=== PATIENT | female | born 1990 | race Caucasian/White ===

== ENCOUNTER 2024-04-30 09:59 | Emergency (ER) | payer OTHER ==
[~2024-04-30] VITALS: Ht 165.1 cm; Wt 88.5 kg
[2024-04-30 10:08] VITALS: PULSE 83; RESP 17; TEMP 98.5
[2024-04-30] MEDS: SODIUM CHLORIDE 0.9% 1000ML 1,000 ML IV STA (10:26)
[2024-04-30 10:37] LABS: BASOPHILS # (AUTO) 0.1 (0.0-0.1); BASOPHILS % 0.7 % (0.0-1.0); EOSINOPHILS # (AUTO) 0.2 (0.0-0.4); EOSINOPHILS % 2.7 % (0.0-6.0); HEMATOCRIT 41.2 % (34.2-44.1); LYMPHOCYTES # (AUTO) 2.3 (1.0-3.2); LYMPHOCYTES % 33.2 % (18.0-39.1); MEAN CORPUSCULAR HEMOGLOBIN 27.7 pg (28-32); MEAN CORPUSCULAR HGB CONC 31.6 g/dL (31-35); MEAN CORPUSCULAR VOLUME 87.7 fL (81-99); MONOCYTES # (AUTO) 0.4 (0.2-0.8); MONOCYTES % 6.2 % (4.4-11.3); NEUTROPHILS # (AUTO) 3.9 (2.1-6.9); NEUTROPHILS % 56.6 % (38.7-80.0); PLATELET COUNT 246 x10e3/uL (140-360); RED CELL DISTRIBUTION WIDTH 13.8 % (11.7-14.4); WHITE BLOOD COUNT 6.93 x10e3/uL (4.8-10.8)
[2024-04-30 11:04] LABS: INR 1.06; PROTHROMBIN TIME 14.3 seconds (11.9-14.5)
[2024-04-30 11:05] LABS: PARTIAL THROMBOPLASTIN TIME 30.4 seconds (23.8-35.5)
[2024-04-30 11:12] LABS: ANION GAP 12.7 mmol/L (8-16); CALCIUM 9.5 mg/dL (8.4-10.2); CREATININE, SERUM 0.71 mg/dL (0.57-1.11); POTASSIUM 3.7 mmol/L (3.5-5.1)
[2024-04-30 12:15] LABS: HCG,QUANTITATIVE 2708.92 mIU/mL (0-10)
[2024-04-30 14:37] VITALS: BP 135/84; PULSE 81; RESP 17; O2SAT 100
== END 2024-04-30 14:39 | disposition home or self-care (01) ==
LOC: ER 10:18
DX: O03.4 Incomplete spontaneous abortion without complication (principal)
CPT/HCPCS: 36415; 76801; 76817; 80048; 84702; 85025; 85610; 85730; 99283